=== PATIENT | female | born 1990 | race Caucasian/White ===

== ENCOUNTER 2020-03-31 16:47 | Outpatient (CLI) | payer OTHER, SELFPAY ==
--- NOTE | ~2020-03-31 | XR_ITS ---
EXAMINATION: XR sacrum coccyx min 2V INDICATION: Urinary retention TECHNIQUE: Three views of the sacrum and coccyx are obtained. COMPARISON: 08/07/2017 FINDINGS: There is a neurostimulator device implanted in the posterior subcutaneous tissues of the ri ght lower back with its lead entering the left pelvis, grossly unchanged. Bone alignment is normal. T here is no fracture. A phlebolith is noted in the left pelvis. There is a moderate volume of colonic stool. IMPRESSION: 1. No radiographic correlate for the patient's symptoms. Reviewed, dictated and finalized at location A.
== END 2020-03-31 16:48 | disposition home or self-care (01) ==
PROVIDERS: PCP Family Medicine
DX: R33.9 Retention of urine, unspecified (principal)
CPT/HCPCS: 72220

== ENCOUNTER 2020-11-03 13:33 | Outpatient (CLI) | payer OTHER, SELFPAY ==
--- NOTE | ~2020-11-03 | US_ITS ---
US breast RT limited DATE: 11/03/2020 13:55 INDICATION: Right breast lump for 2 months TECHNIQUE: High-resolution ultrasound imaging targeted at area of clinical complaint of right breast lump at 10:00 7 cm from nipple COMPARISON: None FINDINGS: No suspicious mass or shadowing is evident. There is no simple or complicated cyst identifi ed. IMPRESSION: BI-RADS Category 1: Negative Reviewed, dictated and finalized at Location A. Reviewed, dictated and finalized at location A. 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
== END 2020-11-03 13:34 | disposition home or self-care (01) ==
LOC: ANHIMG 13:34
PROVIDERS: PCP Family Medicine; Visit Provider Obstetrics & Gynecology
DX: N60.01 Solitary cyst of right breast (principal)
CPT/HCPCS: 76642

== ENCOUNTER 2022-06-16 16:34 | Outpatient (CLI) | payer OTHER, SELFPAY ==
[2022-06-16 17:04] LABS: Rheumatoid Factor < 8.6 IU/ML (<12)
== END 2022-06-16 16:35 | disposition home or self-care (01) ==
LOC: ANHLAB 16:36
PROVIDERS: PCP Family Medicine; Visit Provider Physician Assistant
DX: M25.50 Pain in unspecified joint (principal); R21 Rash and other nonspecific skin eruption
CPT/HCPCS: 36415; 86430

== ENCOUNTER 2023-02-13 12:01 | Outpatient (CLI) | payer OTHER, SELFPAY ==
--- NOTE | ~2023-02-13 | XR_ITS ---
EXAMINATION: XR sacrum coccyx min 2V INDICATION: Low back pain after fall, assess stimulator position TECHNIQUE: Four views of the sacrum and coccyx are obtained. COMPARISON: 03/31/2020 FINDINGS: Bone alignment is normal. There is no fracture. A neurostimulator device is implanted in th e posterior subcutaneous tissues of the right lower back. The intact lead is now seen to enter the pe lvis through the right S3 neural foramen and into the right pelvis, previously S4 and ending in the l eft pelvis. A neurostimulator device orientation is rotated approximately 180 degrees relative to the comparison examination. There is mild lumbar spondylosis. A moderate volume of stool is present in t he rectum. IMPRESSION: 1. Neurostimulator device lead now entering the right pelvis through the S3, previously the left pelv is through S4. 2. Stimulator device orientation is approximately 180 degrees relative to the comparison examination consistent with interval exchange of the device or rotation within the device cavity. Reviewed, dictated and finalized at location B. IMPRESSION: 1. Neurostimulator device lead now entering the right pelvis through the S3, pr eviously the left pelvis through S4. 2. Stimulator device orientation is approximately 180 degrees relative to the c omparison examination consistent with interval exchange of the device or rotati on within the device cavity.
== END 2023-02-13 12:02 | disposition home or self-care (01) ==
PROVIDERS: PCP Family Medicine; Visit Provider Nurse Practitioner Family
DX: R33.8 Other retention of urine (principal); Z96.82 Presence of neurostimulator
CPT/HCPCS: 72220

== ENCOUNTER 2023-06-20 16:52 | Outpatient (CLI) | payer OTHER, SELFPAY ==
--- NOTE | ~2023-06-20 | XR_ITS ---
AP view of the pelvis and AP and lateral views of the bilateral hips Clinical history: Pain COMPARISON: 02/13/2023 Findings: No acute fracture or dislocation is seen. Stable bone island in the right femoral neck. Oss eous alignment is anatomic. Bilateral hip and SI joint spaces are preserved. Neurostimulator device p resent. Soft tissues are unremarkable. Impression: No significant osseous or articular abnormality evident. Neurostimulator device. Reviewed, dictated and finalized at location . Impression: No significant osseous or articular abnormality evident. Neurostimulator device.
== END 2023-06-20 16:53 | disposition home or self-care (01) ==
PROVIDERS: PCP Family Medicine; Visit Provider Physician Assistant
DX: M25.551 Pain in right hip (principal); M25.552 Pain in left hip; Z96.82 Presence of neurostimulator
CPT/HCPCS: 73521

== ENCOUNTER 2023-08-28 08:52 | Outpatient (CLI) | payer OTHER, SELFPAY ==
--- NOTE | ~2023-08-28 | XR_ITS ---
XR lumbar spine min 4V DATE: 08/28/2023 09:18 INDICATION: Right hip pain TECHNIQUE: AP, lateral, coned lateral lumbosacral views and bilateral oblique views COMPARISON: January 04, 2018 lumbar spine FINDINGS: Again noted is thoracolumbar levoscoliosis. No fracture or bone destruction, spondylolysis or spondylolisthesis is detected. Lumbosacral interspa trish are well preserved. Battery pack overlies the right lower back with right sacral neurotransmitter lead. IMPRESSION: Levoscoliosis Reviewed, dictated and finalized at location B. IMPRESSION: Levoscoliosis
== END 2023-08-28 08:53 | disposition home or self-care (01) ==
PROVIDERS: PCP Family Medicine; Visit Provider Physician Assistant
DX: M25.551 Pain in right hip (principal); M25.552 Pain in left hip; M54.50 Low back pain, unspecified; M79.604 Pain in right leg; M79.605 Pain in left leg
CPT/HCPCS: 72110

== ENCOUNTER 2024-12-12 16:00 | Outpatient (CLI) | payer OTHER, SELFPAY ==
[2024-12-12 17:04] LABS: Influenza A QL RT-PCR Negative (Negative); Influenza B QL RT-PCR Negative (Negative); RSV RNA, RT-PCR Negative (Negative); SARS-CoV-2 RNA PCR Positive (Negative)
== END 2024-12-12 16:01 | disposition home or self-care (01) ==
LOC: ANHLAB 16:01
PROVIDERS: PCP Family Medicine; Visit Provider Family Medicine
DX: U07.1 COVID-19 (principal)
CPT/HCPCS: 87637

== ENCOUNTER 2025-02-13 09:44 | Outpatient (CLI) | payer OTHER, SELFPAY ==
--- OUTSIDE RECORDS SUMMARY | 2025-02-13 10:17 | XMS_ITS | Clinical Summary ---
Author Organization [facility] Address [address] [place] [address] Care Team Providers Care Certified Ophthalmic Assistant Name Role Phone Unavailable Primary Care Provider Unavailabl e Source Comments [facility],non-owned Affiliates and Associated Physician Practices is amultiple site organization consisting of ambulatory clinics and hospital sitesin [place], [place], [place] and [place]. This disclosure is being madepursuant to the Care Everywhere program and may not contain all information available regarding this patient. Last updated 18.[facility] [employer] Active Problems Problem Noted Date Diagnosed Date Other specified disorders of muscle 11/25/2014 Abdominal distension (gaseous) 11/24/2014 Gastroparesis 11/24/2014 Resolved Problems Problem Noted Date Diagnosed Date Resolved Date Constipation 11/24/2014 03/12/2018 Family History Medical History Relation Name Comments None Known Brother Status: Alive Depression Father Status: Alive Cancer Maternal Grandmother Colon a nd breast Hypertension Maternal Grandmother Depression Mother Status: Alive Cancer - Colon Paternal Grandmother Diabetes Paternal Grandmother Relation Name Status Comments Brother Father Maternal Grandmother Mother Paternal Grandmother Social History Tobacco Use Types Packs/Day Years Used Date Smoking Tobacco: Never Smokeless Tobacco: Never Alcohol Use Standard Drinks/Week Comments Yes 0 (1 standard drink = 0.6 oz pur e alcohol) Sex and Gender Information Value Date Recorded Sex Assigned at Not on file Gender Identity Not on file Sexual Orientation Not on file Last Filed Vital Signs Vital Sign Reading Time Taken Comments Blood Pressure 140/88 11/24/2014 1:56 PM PRESSER HAND Pulse 83 11/24/2014 1:56 PM PRESSER HAND Temperature 36.9 C (98.5 F) 11/24/2014 1:56 PM PRESSER HAND Respiratory Rate 18 11/24/2014 1:56 PM PRESSER HAND Oxygen Saturation - - Inhaled Oxygen Concentration - - Weight 66.9 kg (147 lb 8 oz) 11/24/2014 1:56 PM PRESSER HAND Height 170.2 cm (5' 7 ) 11/24/2014 1:56 PM PRESSER HAND Body Mass Index 23.1 11/24/2014 1:56 PM PRESSER HAND Plan of Treatment Health Maintenance Due Date Last Done Comments PAP SMEAR 1989 HIV SCREENING 2004 HEPATITIS C SCREENING 12/21/2007 DTAP/TDAP/TD VACCINES (1 - Tdap) 2008 HEPATITIS B VACCINE (1 of 3 - 19+ 3-dose series) 2008 COVID-19 VACCINE ( - 2023-2 5 season) 2024 INFLUENZA VACCINE (#1) 2024 DEPRESSION SCREENING 11/13/2024 ZOSTER VACCINE (1 of 2) 2039 HIB VACCINE Aged Out No longer eligi ble based on patient's age to complete this topic HPV VACCINE Aged Out No longer eligi ble based on patient's age to complete this topic MENINGOCOCCAL (Group B) VACC INE SHARED DECISION-MAKING Aged Out No longer eligibl e based on patient's age to complete this topic MENINGOCOCCAL GROUPS A/C/Y/W VACCINE Aged Out No longer eligible b ased on patient's age to complete this topic PNEUMOCOCCAL VACCINE Aged Out No long er eligible based on patient's age to complete this topic
--- OUTSIDE RECORDS SUMMARY | 2025-02-13 10:18 | XMS_ITS | Clinical Summary ---
Author Organization [facility] Address [address] [place] [address] Care Team Providers Care Steam Power Plant Operator Name Role Phone Gurpreet Dior MD Primary Care Provider [phone] Medications No known medications Social History Tobacco Use Types Packs/Day Years Used Date Smoking Tobacco: Never Smokeless Tobacco: Never Alcohol Use Standard Drinks/Week Comments Never 0 (1 standard drink = 0.6 oz pur e alcohol) Comments Unknown Sex and Gender Information Value Date Recorded Sex Assigned at Not on file Legal Sex Female 8:29 PM CDT Gender Identity Not on file Sexual Orientation Not on file Last Filed Vital Signs Vital Sign Reading Time Taken Comments Blood Pressure 115/82 06/12/2022 6:30 AM CDT Pulse 114 06/12/2022 5:37 AM CDT Temperature 37.2 C (98.9 F) 06/12/2022 5:37 AM CDT Respiratory Rate 18 06/12/2022 5:37 AM CDT Oxygen Saturation 100% 06/12/2022 6:45 AM CDT Inhaled Oxygen Concentration - - Weight 62.6 kg (138 lb) 06/12/2022 5:37 AM CDT Height 170.2 cm (5' 7 ) 06/12/2022 5:37 AM CDT Body Mass Index 21.61 06/12/2022 5:37 AM CDT Plan of Treatment Health Maintenance Due Date Last Done Comments Cervical Cancer Screening Pa p Smear (Age 30 to 64) Every 3 Years 1989 Annual Physical 1992 Hepatitis C 2007 Hepatitis B Vaccines (1 of 3 - 19+ 3-dose series) 2008 Cervical Cancer Screening Pa p with HPV Testing (Age 30 to 64) Every 5 Years 2019 Cervical Cancer Screening wi th HPV 2019 COVID-19 Vaccine (2023-2 5 season) 2024 10/04/2021, 02/16/2021, 01/21/2021 Influenza Adult (#1) 2024 08/26/2018, 11/16/2017, 08/18/2015 DTaP, Tdap and Td Vaccines ( 2 - Td or Tdap) 04/10/2029 04/10/2019 HPV Vaccines Aged Out No longer eligi ble based on patient's age to complete this topic Meningococcal B Vaccine Aged Out No l onger eligible based on patient's age to complete this topic Meningococcal Vaccine Aged Out No luciana chula eligible based on patient's age to complete this topic Pneumococcal Vaccine: Pediatrics (0 to 5 Years) and At-Risk Patients (6 to 64 Years) Aged Out No longer eligible b ased on patient's age to complete this topic RSV Immunizations Under 20 Months Aged Out No longer eligible b ased on patient's age to complete this topic [facility] [facility] Care [facility] Steam Power Plant Operator Relationship Specialty Start Date End Date Gurpreet Dior MD [address] [place] [address] PCP - General FAMILY PRACTICE 09/19/24
--- OUTSIDE RECORDS SUMMARY | 2025-02-13 10:18 | XMS_ITS | Encounter Summary ---
Author Organization [facility] Address [address] [place] [address] Phone Care Team Providers Care Generator Repairer Name Role Phone Gurpreet Dior MD Primary Care Provider Encounter Details Date Type Department Care Team (Late st Contact Info) Description 02/04/2025 Telephone [facility] Cardiology [address] [facility] 8th [place] [address] [place] [address] Mariya Kenny Social History Tobacco Use Types Packs/Day Years Used Date Smoking Tobacco: Never Smokeless Tobacco: Never Alcohol Use Standard Drinks/Week Comments No 0 (1 standard drink = 0.6 oz pur e alcohol) AUDIT-C Answer Date Recorded Q1: How often do you have a drink containing alc ohol? 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 NO DEVICE documented in this encounter Plan of Treatment Not on file documented as of this encounter Visit Diagnoses Not on filedocumented in this encounter Care Teams Generator Repairer Relationship Specialty Start Date End Date Gurpreet Dior MD [address] [facility] [address] [place] [address] PCP - General 01/10/17 documented as of this encounter
--- OUTSIDE RECORDS SUMMARY | 2025-02-13 10:18 | XMS_ITS | Clinical Summary ---
Author Organization [facility] Address [address] [address] Care Team Providers Care Casserole Preparer Name Role Phone Gurpreet Dior MD Primary Care Provider Allergies Active Allergy Reactions Criticality Noted Date Comments Other Itching,Rash Medium SURGICAL GLUE Medications rizatriptan CRITICAL CARE TECHNICIAN (MAXALT-CRITICAL CARE TECHNICIAN) 10 mg disintegrating tablet as needed 07/16/20 20 Active topiramate (TOPAMAX) 25 mg tablet daily 07/08/20 20 Active cyanocobalamin (Vitamin B-12) 1,000 mcg/mL injection INJECT 1 ML UNDER THE SKIN EVERY OTHER WEEK 11/19/19 22 Active BD SafetyGlide Insulin Syringe 1 mL 29 gauge x 1/2 syringe 09/09/20 21 Active dilTIAZem CD/XR/XT (CARDIZEM CD,DILACOR XR) 120 mg 24 hr capsule Take 1 capsule (120 mg total) by mouth daily 30 capsule 11 01/12/20 23 Active Additional Information Patient not taking.Reported on 12/31/2024 neomycin-polymyxin -HC (CORTISPORIN) 3.5-10,000-1 mg/mL-unit/mL-% otic suspension as needed 02/03/20 23 Active vitamin D3-vitamin K2 1,250-200 mcg capsule Take by mouth daily Active Loryna, 28, 3-0.02 mg per tablet TAKE 1 TABLET BY MOUTH DAILY IN CONTINUOUS MANNER SKIPPING THE PLACEBO PILLS 12/08/19 24 Active plecanatide 3 mg tablet Take 1 tablet (3 mg total) by mouth daily 90 tablet 3 12/29/19 24 Active Additional Information Patient not taking.Reported on 12/31/2024 dilTIAZem (CARDIZEM) 30 mg tablet Take 1 tablet (30 mg total) by mouth 3 (three) times a day as needed (Take one daily and prn for elevated HR) 180 tablet 03/08/20 24 Active pyRIDostigmine (MESTINON) 60 mg tablet Take 1 tablet (60 mg total) by mouth 3 (three) times a day 90 tablet 3 12/31/19 25 Active mineral oil liquidIndications: constipation 1 tablespoonful once or twice a day 180 mL 2 12/31/19 25 Active Active Problems Problem Noted Date Diagnosed Date S/P colectomy 02/14/2022 Overview (02/14/2022): Added automatically from request for surgery [id number] care following vaginal delivery 06/26 Overview (06/30/2019): # ID: Afebrile. No signs/symptoms of infection. # Heme: EBL 400 mL. No symptoms acute blood loss anemia. - B12 def: patient has been receiving supplementation per MFM. Will take last injection next week (needle will be provided prior to discharge, patient has none at home) and follow-up at routine PP visit for recheck level. Also encouraged patient to follow-up with PCP who had previously prescribed to ensure good coordination of care. # CV/Pulm: - cHTN: 3-4 elevated BPs outside of , on no meds. Admission CBC/CMP wnl. UPC 0.17. Two mild range BPs while in labor. Normotensive to mild range and asymptomatic. 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 Valles (EP for cards). Monitored on continuous telemetry. Alarm @11:09 on 06/27 with tachycardia, HR >170, concerning for SVT though unable to determine fully secondary to resolution after valsalva maneuver with no 12-lead EKG. EP following - started on diltiazem 120 daily with no further alarms overnight. CTM closely and continue telemetry. Patient asymptomatic. Will DC with diltiazem. EP recommends to keep appointment in February and f/u if symptoms develop. Number provided to patient in d/c information. - Chronic constipation: neurogenic bowel s/p total colectomy; multiple BM during admission, does not desire bowel reg on discharge (will go back to home regimen). - Neuropathic bladder: s/p Interstim placement, self cath prn. S/p void trial with multiple spontaneous voids - patient continues to spontaneously void without the need for straight catheterization. # Pain: Controlled with above regimen. # Post DVT prophylaxis: Patient has the following moderate risk factors: None. Her post prophylaxis plan is SCDs and early ambulation # MOC: POPs, encouraged to discuss other options at PP visit # MOF: # Disposition: Desires discharge home today, will ensure close follow-up in [facility] and with PCP, EP in February Elevated blood pressure affe cting in third trimester, antepartum 06/18/2019 Overview (06/18/2019): WAC 06/18/19 R/O SI Pre Eclampsia: x1 mild range in office -No e/o Pre Eclampsia, BP normotensive -No MCKAY or visual changes -No RUQ tenderness -PIH labs: normal with UPC 0.2 - Pre E precautions given. FWB: Reactive NST B12 deficiency 05/31/2019 Overview (06/18/2019): - continues to get B12 injections Anemia affecting in third trimester Overview (06/18/2019): - Normocytic anemia on 2nd tri labs with ferritin (6), Fe (43). - Previous diagnosis of B12 deficiency and wishes to recheck this level. - s/p IV iron Migraines 12/31/2018 Overview (06/18/2019): - Reports frequent migraines this that often cause n/v - gets relief from Excedrin Migraine, discussed given 250 mg of aspirin in Excedrin Migraine would avoid for remainder of . Patient reports still taking rarely (5x this ). - Encouraged to utilize tylenol and caffeine - given daily magnesium and compazine as needed, not helping - Given rx for reglan 5 mg on 01/14 Assessment & Plan (02/11/2019 11:47 AM CDT): Reports occasional headaches but overall doing well on current regimen. with history of recent miscarriage 09/2019 Inappropriate sinus tachycardia 07/25/2018 Overview (06/18/2019): --EP [place] is Dr. Kervin Valles --presented in 12/2016 with Palpitations and SOB; work-up revealed a right-sided aortic arch and anomalous left subclavian artery but otherwise normal echo --working Dx is inappropriate sinus tachycardia, possibly related to her unnamed autonomic dysfunction --was on diltiazem, but switch to metoprolol for (25mg) last , stopped 2/2 symptomatic hypotension - Normal echo --had holter 01/21/19 which showed overall good heart rate control & pt reports asymptomatic. - Patient reported more palpitations on 04/29 currently still on holter, plan to repaet 30 day event monitor per Dr. Valles. Discussed that either diltiazem or metoprolol is safe to restart if needed. --Please notify Dr. Valles's team when patient admitted. - tele in labor Assessment & Plan (04/23/2019 3:48 PM CDT): No cardiac issues today. Feels well. Assessment & Plan (02/11/2019 11:47 AM CDT): Denies issues Assessment & Plan (12/24/2018 2:14 PM MATERIAL STRESS TESTER): Denies symptoms, plans to call Dr. 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 Overview (06/18/2019): - Maternal right sided aortic arch with abarent left subclavian artery - Specialized anatomy and echo wnl Hypertension 01/03/2017 Overview (11/26/2018): -No meds prior to pregnnacy -counseled on maternal and risks in Plan: -Ordered 24 hr UP and CMP 11/26 -serial growths Tachycardia, unspecified 01/02/2017 Likely chronic hypertension affecting 09/15/2015 Overview (06/11/2019): -No meds outside of pregnacy -Patient denies HTN outside of , however, chart review in [employer] reveals 3-4 elevated BPs outside of -Counseled on recurrence risks in Plan: - continue baby ASA- stop at GA36 wks - 24 hr UP 94, CMP wnl - serial growth assessment- AGA at this time - delivery at 39 weeks if not before-IOL scheduled Assessment & Plan (06/18/2019 4:47 PM CDT): BP elevated above baseline today. Denies symptoms of preE but states she does not feel well the last two days. Sent to [facility] for r/o preE Assessment & Plan (04/23/2019 3:47 PM CDT): Normotensive today. PEC precautions reviewed. Supervision of high risk , antepartum 1 Overview (06/17/2019): [] Co-management vs. [x] Full [facility] Care Referring Provider: self [x] Dating Criteria: 6 wk u/s [x] Labs: Rh O+, Ab neg, Rubella Imm, HIV neg, HepBSAg neg, RPR NR, GC/CT neg/neg [x] Genetic Screening: [x] 1T screen low risk, [] 2T screen [x] CBC: 12.41/36.3 plt 174 [x] UCx: 12/31 Enterococcal UTI, no abx until 01/14, repeat culture negative 04/12 [x] Pap: plan for pap 2nd Tri Labs: [x] Anatomy ultrasound: complete and wnl [x] CBC and 1hr gtt at 24-28wks: 9.4/160 tmw=403 [x] Flu Shot (Sep-Dec) [x] Tdap (27-36wks)given 04/10 3rd Tri Labs: [x] CBC (8.9/28)/HIV neg /RPR neg/T&S (O+) [x] GBS-negative Counselling [x] MOD: Anticipate IOL scheduled for 06/26 @ 0600 [x] Place of delivery: [facility] [x] MOC: Patient does not desire BTL. May have a in 3 years. Reviewed LARC methods today. Considering Nexplanon [x] Method of feeding: wants to try breast again [] Hydro Station Supervisor: [] Car seat Discussed [] PP Depression Discussed Patient desires Martinez Escobar to be her L&D Nurse, if possible Neurogenic bowel 03/26/2015 Neuropathic bladder 03/26/2015 Overview (06/18/2019): --Neuropathic bladder prone to retention, managed with interstim outside of --Urologist Dr. Pieter Santos, s/p appointment with him on 12/18/18 --She has already been counseled regarding her use of InterStim and that this will have to be turned off when she becomes and turned it off herself when she became --Since it has been off, she has been able to void spontaneously without difficulty. Since she does not sense when her bladder is full, I recommended that she increase the frequency of regular voiding --Previously recommended that she self cath to check residual at least daily, after appointment with Dr. Santos the plan is not to initiate self caths at this time as her residual in his office was only 200cc. Reinforced importance of timed voids --last she self-catheterized and that would be the plan as needed this time --UTI 12/31, patient did not start medication until 01/14 --RONALD positive 02/11, treated with macrobid. Repeat RONALD 04/10 WNL --05/22- stopped her daily suppression, and denies symptoms. Assessment & Plan (06/18/2019 12:38 PM CDT): Denies issues Assessment & Plan (02/11/2019 11:46 AM CDT): Patient has not been self cathing Chronic constipation 07/17/2013 Overview (11/26/2018): Neurogenic bowel, status post total colectomy w/ reanastomosis --We reviewed her history and records at length. There is no over arching diagnosis that she has come to after an extensive workup after several years. Because she did not present with any of these symptoms in childhood and was not symptomatic until her late teens, it is not felt to be a congenital disease. --She had regular bowel studies at the [facility] which most recently reflected poor motility of her small bowel as well which was consistent with her ongoing symptoms of constipation and bloating, though she has never had any problems with malnutrition. --Dr. Vikram Moore follows her locally -- in her last she required enemas, which originally she had to be admitted with but then was able to do them at home; she has always been refractory to constipation meds --currently, and most recently she has had soft regular BM and can manage with hydration and diet; she will plan to continue with this plan and revisit with Dr. Moore is she becomes symptomatic Assessment & Plan (04/23/2019 3:48 PM CDT): No issues today. Assessment & Plan (02/11/2019 11:47 AM CDT): Denies issues Assessment & Plan (12/24/2018 2:13 PM MATERIAL STRESS TESTER): Denies issues today Abnormal large bowel motility 09/28/2012 Resolved Problems Problem Noted Date Diagnosed Date Resolved Date Vaginal bleeding before 22 weeks gestation 12/31/2018 02/11/2019 Overview (12/31/2018): - Reports 1 episode of bleeding 12/31 noted on toilet paper after urinating - Denies UTI symptoms but reports she often has bleeding with UTIs, dip negative 12/31, urine culture sent - Viability US 12/31 wnl, cervical length noted to be 5cm on verbal report from geographic information system analyst Kalpana ONEIL: closed/long/posterior - [facility] precautions reviewed Missed 08/16/2018 11/23/2018 Overview (08/16/2018): Added automatically from request for surgery [id number] Dysuria during , antepartum 07/25/2018 11/22/2018 Dizziness 02/14/2017 11/22/2018 Sensation of chest tightness 01/03/2017 11/22/2018 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 019 Nausea with vomiting 06/04/2015 019 Disorder of muscle, ligament, and fascia 08/06/2013 11/22/2018 Encounters Date Type Department Care Team Description 02/04/2025 Telephone [facility] Cardiology [address] [place] [address] [place] [address] Mariya Kenny 12/31/2024 11:15 AM MATERIAL STRESS TESTER Office Visit [facility] Gastroenterology [address] [place] [address] [place] [address] Tomas Diaz MD Chronic idiopathic constipation (Primary Dx); Bloating; Anal pain; Abdominal cramping from Last 3 Months Immunizations Immunization Administration Dates Next Due Influenza, Trivalent, Preservative Free, Intramu scular 08/18/2015 Tdap 04/10/2019 Surgical History Surgery Date Site/Laterality Comments COLPOSCOPY 11/13/2010 - 11/12/2011 OTHER SURGICAL HISTORY 2013 Interstim. 2016 Interstim replaced. CYST REMOVAL 11/13/2015 - 11/12/2016 Left wrist DILATION AND CURETTAGE OF UTERUS 11/13/2017 - 11/12/2018 miscarriage COLECTOMY 11/13/2009 - 11/12/2010 COMBINED HYSTEROSCOPY DIAGNOSTIC / D&C 11/13/2015 - 11/12/2016 Medical History Medical History Date Comments Tachycardia Chronic constipation Neurogenic bladder Dysuria HPV (human papilloma virus) infection 2010 Miscarriage 2018 Family History Medical History Relation Name Comments Alcohol abuse Father Colon cancer Maternal Grandmother Stroke Maternal Great-Grandmother F amily history of cerebrovascular accident - (Added by TW Conv) No Known Problems Mother Diabetes Paternal Grandmother Relation Name Status Comments Father Maternal Grandmother Maternal Great-Grandmother Mother Paternal Grandmother Social History Tobacco Use Types Packs/Day Years Used Date Smoking Tobacco: Never Smokeless Tobacco: Never Tobacco Cessation:Counseling Given: Not Answered Alcohol Use Standard Drinks/Week Comments No 0 [...] on file Legal Sex Female 7:40 PM MATERIAL STRESS TESTER Gender Identity Not on file Sexual Orientation Not on file Obstetrics History Para Term AB IAB SAB Ectopic Multiple Livin g Live Births 3 2 2 1 1 0 2 2 Date Outcome GA Total Labor Labor/2nd/3rd Weight Sex Type Anes PTL Ilzbet A1 A5 Name Clin 2015 Term 39w 0d 3.402 kg (7 lb 8 oz) F Vag-S pont Epidur al N Livin g 2017 SAB 9w0 d D&C 2018 Term 39w 1d 19h 01m 17h 10m/1h 41m/0h 10m 4.23 kg (9 lb 5.2 oz) F Vag-S pont Epidur al N Livin g 7 9 WILLI AMS,G IRLTR LULU Wong rg, Barbara Perdomo MD Complications:Shoulder Dysto pablo Delivery Location:[facility] Main C ampus ([facility] 58LD) Last Filed Vital Signs Vital Sign Reading Time Taken Comments Blood Pressure 117/80 12/31/2024 11:14 AM MATERIAL STRESS TESTER Pulse 85 12/31/2024 11:14 AM MATERIAL STRESS TESTER Temperature 36.8 C (98.2 F) 03/10/2022 7:29 AM CDT Respiratory Rate 16 12/31/2024 11:1 4 AM MATERIAL STRESS TESTER Oxygen Saturation 98% 12/31/2024 11: 14 AM MATERIAL STRESS TESTER Inhaled Oxygen Concentration - - Weight 67.5 kg (148 lb 12.8 oz) 025 11:14 AM MATERIAL STRESS TESTER Height 170.2 cm (5' 7 ) 12/31/2024 11:1 4 AM MATERIAL STRESS TESTER Body Mass Index 23.31 12/31/2024 11:14 AM MATERIAL STRESS TESTER Plan of Treatment Health Maintenance Due Date Last Done Comments Depression Screening 1989 Hepatitis C Screening 1989 Varicella Vaccines (1 of 2 - 13+ 2-dose series) 2002 Hepatitis B Screening 2007 Regular Well Visit/Exam 18-64 2007 Cervical Cancer Screening 08/08/2020 08/08/2019 Influenza Vaccine (Season Ended) 2025 08/26/2018, 11/16/2017, 08/18/2015 DTaP/Tdap/Td Vaccine (2 - Td or Tdap) 04/10/2029 04/10/2019 HPV Vaccines Aged Out No longer eligi ble based on patient's age to complete this topic Pneumococcal vaccine <65 Aged Out No longer eligible based on patient's age to complete this topic Medical Devices Implanted Type Area Tv Host Device Identifier Shelf Expiration Date Model / Serial / Lot Interstem N/A: Bladder Procedures Procedure Name Priority Date/Time Associated Diagnosis Comments THINPREP IMAGING PAP REFLEX HPV MRNA E6/E7 Routine 08/08/2019 12:00 AM CDT from Last 3 Months or Most Recently Relevant to Health Maintenance Results * ThinPrep Imaging Pap Reflex HPV mRNA E6/E7 (08/08/2019 12:00 AM CDT) CLINICAL INFORMATION: Routine exam 6WKS W/HX OF HPV+ 29Y/O FE [facility] [place] LMP INFORMATION NOT PROVIDED [facility] Previous Pap INFORMATION NOT PROVIDED [facility] Prev. Bx INFORMATION NOT PROVIDED [facility] SOURCE: Cervix, Endocervix [facility] - Pap, specimen adequacy SATISFACTORY FOR EVALUATION [facility] HPV interp Negative for intraepithelial lesion or malignancy. Atrophic pattern; predominantly parabasal cells [facility] COMMENTS This Pap test has been evaluated with computer assisted technology. [facility] - Access Specialist [place], CT(ASCP) CT screening location: [place] [address] [facility] - Review dish up person [place], CT(ASCP) CT Screening location: [facility] [address] [facility] - Comment [facility] - Comment: EXPLANATORY NOTE: The Pap is a screening test for cervical cancer. It is not a diagnostic test and is subject to false negative and false positive results. It is most reliable when a satisfactory sample, regularly obtained, is submitted with relevant clinical findings and history, and when the Pap result is evaluated along with historic and current clinical information. 08/08/2019 08/09/2019 4:4 6 AM CDT Narrative [facility] - 08/13/2019 7:55 AM CDT FASTING: UNKNOWN Resulting Agency Comment Performing Organization Information: Site ID: [place] Name: [facility] Address: [address] [place] [address] Director: Rhiannon Rangel us Elizabeth Hernández MD LAB PATHOLOGY ORDERAB LES Final Result [facility] [address] [place] from Last 3 Months or Most Recently Relevant to Health Maintenance Insurance COMMERCIAL GENERIC CIGNA IBEW [facility] CIGNA CIGNA OPEN ACCESS CIGNA IBEW [facility] CIGNA IBEW CIGNA IBEW CIGNA IBEW Advance Directives For more information, please contact: [phone] * Full Code (Latest Code Status on File) Date Activated Date Inactivated Comments 03/10/2022 6:22 AM 03/10/2022 12:31 PM * Full Code Date Activated Date Inactivated Comments 06/27/2019 11:55 PM 06/30/2019 3:44 PM * Full Code Date Activated Date Inactivated Comments 06/27/2019 7:47 AM 06/27/2019 11:55 PM * Full Code Date Activated Date Inactivated Comments 06/26/2019 7:00 AM 06/27/2019 7:47 AM Full CPR in case of cardiopulmonary arrest Care Teams Casserole Preparer Relationship Specialty Start Date End Date Gurpreet Dior MD [address] [facility] [address] [place] [address] PCP - General 01/10/17
--- OUTSIDE RECORDS SUMMARY | 2025-02-13 10:18 | XMS_ITS | Referral Summary ---
Author Organization [facility] Address [address] [place] [address] Care Team Providers Care Soaker Soda Worker Name Role Phone Gurpreet Dior MD Primary Care Provider Encounters Date Type Department Care Team Description 02/04/2025 Telephone [facility] Cardiology [address] [facility] 8th [place] [address] [place] [phone] Mariya Kenny 12/31/2024 11:15 AM CUP SETTER LOCKSTITCH Office Visit [facility] Gastroenterology [address] [facility] 12th [place] [address] [place] [address] Tomas Diaz MD Chronic idiopathic constipation (Primary Dx); Bloating; Anal pain; Abdominal cramping from Last 3 Months Allergies Active Allergy Reactions Criticality Noted Date Comments Other Itching,Rash Medium SURGICAL GLUE Medications rizatriptan UTILITY DRIVER (MAXALT-UTILITY DRIVER) 10 mg disintegrating tablet as needed 07/16/20 [...] 3.5-10,000-1 mg/mL-unit/mL-% otic suspension as needed 02/03/20 Active vitamin D3-vitamin K2 1,250-200 mcg capsule [...] (02/14/2022): Added automatically from request for surgery [id number] care following vaginal delivery 06/26 Overview (06/30/2019): # ID: Afebrile. No signs/symptoms of infection. # Heme: EBL 400 mL. No symptoms acute blood loss anemia. - B12 def: patient has been receiving supplementation per M. Will take last injection next week (needle [...] home today, will ensure close follow-up in [facility] and with PCP, EP in February [...] Inappropriate sinus tachycardia 07/25/2018 Overview (06/18/2019): --EP fire supervisor is Dr. Kervin Valles --presented in 12/2016 [...] issues Assessment & Plan (12/24/2018 2:14 PM CUP SETTER LOCKSTITCH): Denies symptoms, plans to call Dr. Valles [...] well the last two days. Sent to [facility] for r/o preE Assessment & Plan (04/23/2019 3:47 PM CDT): Normotensive today. PEC precautions reviewed. Supervision of high risk , antepartum 1 Overview (06/17/2019): [] Co-management vs. [x] Full [facility] Care Referring Provider: self [x] Dating [...] CBC and 1hr gtt at 24-28wks: 9.4/160 [id number] [x] Flu Shot (Sep-Dec) [x] Tdap (27-36wks)given 04/10 3rd Tri Labs: [x] CBC (8.08/10)/HIV neg /RPR neg/T&S (O+) [x] GBS-negative Counselling [x] MOD: Anticipate IOL scheduled for 06/26 @ 0600 [x] Place of delivery: [facility] [x] MOC: Patient does not desire BTL. May have a in 3 years. Reviewed LARC methods today. 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 Resolved Problems Problem Noted Date Diagnosed Date Resolved Date Vaginal bleeding before 22 weeks gestation 12/31/2018 02/11/2019 Overview (12/31/2018): - Reports 1 episode of bleeding 12/31 noted on toilet paper after urinating - Denies UTI symptoms but reports she often has bleeding with UTIs, dip negative 2/18, urine culture sent - Viability US 12/31 wnl, cervical length noted to be 5cm on verbal report from analyst food and beverage Kalpana ONEIL: closed/long/posterior - WAC precautions reviewed Missed 08/16/2018 11/23/2018 Overview (08/16/2018): Added automatically from request for surgery [id number] Dysuria during , antepartum 07/25/2018 11/22/2018 Dizziness 02/14/2017 11/22/2018 Sensation of chest tightness 01/03/2017 11/22/2018 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 019 Nausea with vomiting 06/04/2015 019 Disorder of muscle, ligament, and fascia 08/06/2013 11/22/2018 Immunizations Immunization Administration Dates Next Due Influenza, Trivalent, Preservative Free, Intramu scular 08/18/2015 Tdap 04/10/2019 Social History Tobacco Use Types Packs/Day Years [...] on file Legal Sex Female 7:40 PM CUP SETTER LOCKSTITCH Gender Identity Not on file Sexual Orientation Not on file Last Filed Vital Signs Vital Sign Reading Time Taken Comments Blood Pressure 117/80 12/31/2024 11:14 AM CUP SETTER LOCKSTITCH Pulse 85 12/31/2024 11:14 AM CUP SETTER LOCKSTITCH Temperature 36.8 C (98.2 F) 03/10/2022 7:29 AM CDT Respiratory Rate 16 12/31/2024 11:1 4 AM CUP SETTER LOCKSTITCH Oxygen Saturation 98% 12/31/2024 11: 14 AM CUP SETTER LOCKSTITCH Inhaled Oxygen Concentration - - Weight 67.5 kg (148 lb 12.8 oz) 025 11:14 AM CUP SETTER LOCKSTITCH Height 170.2 cm (5' 7 ) 12/31/2024 11:1 4 AM CUP SETTER LOCKSTITCH Body Mass Index 23.31 12/31/2024 11:14 AM CUP SETTER LOCKSTITCH Plan of Treatment Not on file Medical Devices Implanted Type Area Staff Accountant Device Identifier Shelf Expiration Date Model / [...] LMP INFORMATION NOT PROVIDED [facility] - Previous Pap INFORMATION NOT PROVIDED [facility] - SL Prev. Bx INFORMATION NOT PROVIDED [facility] - SOURCE: Cervix, Endocervix [facility] - Pap, specimen adequacy SATISFACTORY FOR EVALUATION [facility] - HPV interp Negative for intraepithelial lesion or malignancy. Atrophic pattern; predominantly parabasal cells [facility] - SL COMMENTS This Pap test has been evaluated with computer assisted technology. [facility] - Thermocouple Tester BEF, CT(ASCP) CT screening location: [place] [address] [address] [place] [address] [facility] - Review cloth shrinking tester GALVEZ, CT(ASCP) CT Screening location: [facility] Administration [place] [address] [facility] - Comment [facility] - Comment: EXPLANATORY NOTE: The [...] Agency Comment Performing Organization Information: Site ID: Name: [facility] Address: [facility] Administration [place] [address] Director: Rhiannon Rangel Elizabeth Hernández MD LAB PATHOLOGY ORDERAB LES Final Result [facility] - [place], [place] from Last 3 Months or Most Recently Relevant to Health Maintenance Insurance COMMERCIAL GENERIC CIGNA IBEW [facility] CIGNA CIGNA OPEN ACCESS CIGNA IB [facility] CIGNA IBEW CIGNA IBEW CIGNA IBEW Advance Directives For more information, please contact: [phone] * Full Code (Latest Code Status on [...] in case of cardiopulmonary arrest Care Teams Soaker Soda Worker Relationship Specialty Start Date End Date Gurpreet Dior MD [address] [place] [phone] PCP - General 01/10/17
[2025-02-13 10:45] LABS: Alanine Aminotransferase 14 U/L (6-35); Aspartate Amino Transferase 23 U/L (14-36)
== END 2025-02-13 09:45 | disposition home or self-care (01) ==
LOC: ANHLAB 09:46
PROVIDERS: PCP Family Medicine; Visit Provider Podiatrist Foot & Ankle Surgery
DX: B35.1 Tinea unguium (principal)
CPT/HCPCS: 36415; 84450; 84460

== ENCOUNTER 2025-03-07 08:53 | Outpatient (CLI) | payer OTHER, SELFPAY ==
--- OUTSIDE RECORDS SUMMARY | 2025-03-07 09:06 | XMS_ITS | Clinical Summary ---
Author Organization [facility] Address [address] [place] [address] Care Team Providers Care Natural Remedy Consultant Name Role Phone Gurpreet Dior MD Primary Care Provider [phone] Medications No known medications Social History Tobacco [...] Screening wi th HPV 2019 COVID-19 Vaccine (4 - 2023-2 5 season) 2024 10/04/2021, 02/16/2021, 01/21/2021 DTaP, Tdap and Td Vaccines ( 2 [...] 5 Years) and At-Risk Patients (6 to 49 Years) Aged Out No longer eligible b ased on patient's age to complete this topic RSV Immunizations Under 20 Months Aged Out No longer eligible b ased on patient's age to complete this topic Insurance [facility] Care Teams Natural Remedy Consultant Relationship Specialty Start Date End Date Gurpreet Dior MD [address] [place] [address] PCP - General FAMILY PRACTICE 09/19/24
--- OUTSIDE RECORDS SUMMARY | 2025-03-07 09:06 | XMS_ITS | Encounter Summary ---
Author Organization [facility] Address [address] [place] [address] Phone Care Team Providers Care Violin Restorer Name Role Phone Gurpreet Dior MD Primary Care Provider Encounter Details Date Type Department Care Team (Late st Contact Info) Description 02/04/[address] [facility] Cardiology [address] [facility] Advanced [facility] 8th [place] [address] [place] [address] Mariya Kenny Social History Tobacco Use Types [...] on file Legal Sex Female 7:40 PM RIGGING LOFT REPAIRER Gender Identity Not on file Sexual Orientation Not on file documented as of this encounter Miscellaneous Notes * Telephone Encounter - Mariya Kenny - 02/04/2025 12:35 PM CDT [facility] CALLING TO R/S 02/13 ROV. NO DEVICE documented in this encounter Plan of Treatment Not on file documented as of this encounter Visit Diagnoses Not on filedocumented in this encounter Care Teams Violin Restorer Relationship Specialty Start Date End Date Gurpreet Dior MD [address] [facility] [address] [place] [address] PCP - General 01/10/17 documented as of this encounter
--- OUTSIDE RECORDS SUMMARY | 2025-03-07 09:06 | XMS_ITS | Referral Summary ---
Author Organization [facility] Address [address] [place] [address] Care Team Providers Care Traffic Worker Name Role Phone Gurpreet Dior MD Primary Care Provider Encounters Date Type Department Care Team Description 02/04/2025 Telephone [facility] Cardiology [address] [facility] 8th [place] [address] [place] [address] Mariya Kenny 12/31/2024 11:15 AM DIETITIAN Office Visit [facility] Gastroenterology [address] [facility] [address] 12th [place] [address] [place] [address] Tomas Diaz MD Chronic idiopathic constipation (Primary Dx); Bloating; Anal pain; Abdominal cramping from Last 3 Months Allergies Active Allergy Reactions Criticality Noted Date Comments Other Itching,Rash Medium SURGICAL GLUE Medications rizatriptan AUTO PAINTER HELPER (MAXALT-AUTO PAINTER HELPER) 10 mg disintegrating tablet as needed 07/16/20 [...] (02/14/2022): Added automatically from request for surgery [id number] care following vaginal delivery 06/26 Overview (06/30/2019): [...] home today, will ensure close follow-up in [facility] and with PCP, EP in February [...] Inappropriate sinus tachycardia 07/25/2018 Overview (06/18/2019): --EP golf course designer is Dr. Kervin Valles --presented in 12/2016 [...] issues Assessment & Plan (12/24/2018 2:14 PM DIETITIAN): Denies symptoms, plans to call Dr. Valles [...] well the last two days. Sent to [facility] for r/o preE Assessment & Plan (04/23/2019 3:47 PM CDT): Normotensive today. PEC precautions reviewed. Supervision of high risk , antepartum 1 Overview (06/17/2019): [] Co-management vs. [x] Full [facility] Care Referring Provider: self [x] Dating [...] CBC and 1hr gtt at 24-28wks: 9.4/160 ltq=[id number] [x] Flu Shot (Sep-Dec) [x] Tdap (27-36wks)given [...] feeding: wants to try breast again [] Broadcaster: [] Car seat Discussed [] PP Depression [...] --She had regular bowel studies at the [facility] which most recently reflected poor motility [...] issues Assessment & Plan (12/24/2018 2:13 PM DIETITIAN): Denies issues today Abnormal large bowel motility [...] to be 5cm on verbal report from database consultant Kalpana ONEIL: closed/long/posterior - WAC precautions reviewed Missed 08/16/2018 11/23/2018 Overview (08/16/2018): Added automatically from request for surgery [id number] Dysuria during , antepartum 07/25/2018 11/22/2018 Dizziness [...] on file Legal Sex Female 7:40 PM DIETITIAN Gender Identity Not on file Sexual Orientation Not on file Last Filed Vital Signs Vital Sign Reading Time Taken Comments Blood Pressure 117/80 12/31/2024 11:14 AM DIETITIAN Pulse 85 12/31/2024 11:14 AM DIETITIAN Temperature 36.8 C (98.2 F) 03/10/2022 7:29 AM CDT Respiratory Rate 16 12/31/2024 11:1 4 AM DIETITIAN Oxygen Saturation 98% 12/31/2024 11: 14 AM DIETITIAN Inhaled Oxygen Concentration - - Weight 67.5 kg (148 lb 12.8 oz) 025 11:14 AM DIETITIAN Height 170.2 cm (5' 7 ) 12/31/2024 11:1 4 AM DIETITIAN Body Mass Index 23.31 12/31/2024 11:14 AM DIETITIAN Plan of Treatment Not on file Medical Devices Implanted Type Area Patient Admitting Clerk Device Identifier Shelf Expiration Date Model / [...] has been evaluated with computer assisted technology. [facility] - Pharmacy Teacher BEF, CT(ASCP) CT screening location: [place] [address] [address] [place] [address] [facility] - Review dowel inserting machine operator GALVEZ, CT(ASCP) CT Screening location: [facility] Administration [place] [address] [facility] - Comment [facility] - Comment: EXPLANATORY NOTE: The [...] Comment Performing Organization Information: Site ID: Name: [email or web address] Address: [facility] Administration [place] [address] Director: Rhiannon Rangel Elizabeth Hernández MD LAB PATHOLOGY ORDERAB LES Final Result [facility] - [place], [place] from Last 3 Months or Most Recently Relevant to Health Maintenance Insurance COMMERCIAL GENERIC CIGNA IBEW [facility] CIGNA CIGNA OPEN ACCESS CIGNA IB [facility] CIGNA IBEW CIGNA IBEW CIGNA IBEW Advance Directives For more information, please contact: [phone] * Full Code (Latest Code Status on [...] in case of cardiopulmonary arrest Care Teams Traffic Worker Relationship Specialty Start Date End Date Gurpreet Dior MD [address] [place] [phone] PCP - General 01/10/17
--- OUTSIDE RECORDS SUMMARY | 2025-03-07 09:06 | XMS_ITS | Clinical Summary ---
Author Organization [facility] Address [address] [address] Care Team Providers Care Master Cook Name Role Phone Gurpreet Dior MD Primary Care Provider Allergies Active Allergy Reactions Criticality Noted Date Comments Other Itching,Rash Medium SURGICAL GLUE Medications rizatriptan ICING MACHINE OPERATOR (MAXALT-ICING MACHINE OPERATOR) 10 mg disintegrating tablet as needed 07/16/20 [...] (02/14/2022): Added automatically from request for surgery [id number] care following vaginal delivery 06/26 Overview (06/30/2019): [...] home today, will ensure close follow-up in [facility] and with PCP, EP in February [...] Inappropriate sinus tachycardia 07/25/2018 Overview (06/18/2019): --EP acid tank liner is Dr. Kervin Valles --presented in 12/2016 [...] issues Assessment & Plan (12/24/2018 2:14 PM MOBILE PRACTICE LEAD): Denies symptoms, plans to call Dr. Valles [...] well the last two days. Sent to [facility] for r/o preE Assessment & Plan (04/23/2019 3:47 PM CDT): Normotensive today. PEC precautions reviewed. Supervision of high risk , antepartum 1 Overview (06/17/2019): [] Co-management vs. [x] Full [facility] Care Referring Provider: self [x] Dating [...] CBC and 1hr gtt at 24-28wks: 9.4/160 vma=[id number] [x] Flu Shot (Sep-Dec) [x] Tdap (27-36wks)given [...] feeding: wants to try breast again [] Advertising Dispatch Clerk: [] Car seat Discussed [] PP Depression [...] --She had regular bowel studies at the [facility] which most recently reflected poor motility [...] issues Assessment & Plan (12/24/2018 2:13 PM MOBILE PRACTICE LEAD): Denies issues today Abnormal large bowel motility [...] to be 5cm on verbal report from end finder forming department Kalpana ONEIL: closed/long/posterior - [facility] precautions reviewed Missed 08/16/2018 11/23/2018 Overview (08/16/2018): Added automatically from request for surgery [id number] Dysuria during , antepartum 07/25/2018 11/22/2018 Dizziness 02/14/2017 11/22/2018 Sensation of chest tightness 01/03/2017 11/22/2018 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 8th [place] [address] [place] [address] Mariya Kenny 12/31/2024 11:15 AM MOBILE PRACTICE LEAD Office Visit [facility] Gastroenterology [address] [facility] 12th [place] [address] [place] [address] Tomas Diaz MD Chronic idiopathic constipation (Primary [...] on file Legal Sex Female 7:40 PM MOBILE PRACTICE LEAD Gender Identity Not on file Sexual Orientation Not on file Obstetrics History Para Term AB IAB SAB Ectopic Multiple Livin g Live Births 3 2 2 1 1 0 2 2 Date Outcome GA Total Labor Labor/2nd/3rd Weight Sex Type Anes PTL Lizbet A1 A5 Name Clin 2015 Term 39w [...] Barbara Perdomo MD Complications:Shoulder Dysto pablo Delivery Location:[facility] Main C ampus ([facility] 58LD) Last Filed Vital Signs Vital Sign Reading Time Taken Comments Blood Pressure 117/80 12/31/2024 11:14 AM MOBILE PRACTICE LEAD Pulse 85 12/31/2024 11:14 AM MOBILE PRACTICE LEAD Temperature 36.8 C (98.2 F) 03/10/2022 7:29 AM CDT Respiratory Rate 16 12/31/2024 11:1 4 AM MOBILE PRACTICE LEAD Oxygen Saturation 98% 12/31/2024 11: 14 AM MOBILE PRACTICE LEAD Inhaled Oxygen Concentration - - Weight 67.5 kg (148 lb 12.8 oz) 025 11:14 AM MOBILE PRACTICE LEAD Height 170.2 cm (5' 7 ) 12/31/2024 11:1 4 AM MOBILE PRACTICE LEAD Body Mass Index 23.31 12/31/2024 11:14 AM MOBILE PRACTICE LEAD Plan of Treatment Health Maintenance Due Date [...] this topic Medical Devices Implanted Type Area Trail Construction Worker Device Identifier Shelf Expiration Date Model / [...] with computer assisted technology. [facility] - Rope Machine Setter BE, CT(ASCP) CT screening location: [place] [address] [facility] - Review java technical architect CANEY, CT(ASCP) CT Screening location: [facility] [address] Valenz[address] [facility] - Comment [facility] - Comment: EXPLANATORY NOTE: The Pap [...] Organization Information: Site ID: SL Name: [facility] Address: [address] [place] [address] Director: Rhiannon Rangel us Elizabeth Hernández MD LAB PATHOLOGY ORDERAB LES Final Result [facility] - [place] from Last 3 Months or Most Recently Relevant to Health Maintenance Insurance COMMERCIAL GENERIC CIGNA IBEW [facility] CIGNA CIGNA OPEN ACCESS CIGNA IBEW [facility] CIGNA IBEW CIGNA IBEW CIGNA IBEW Advance Directives For more information, please contact: [phone] * Full Code (Latest Code Status on [...] in case of cardiopulmonary arrest Care Teams Master Cook Relationship Specialty Start Date End Date Gurpreet Dior MD [address] [facility] [address] [place] [address] PCP - General 01/10/17
--- OUTSIDE RECORDS SUMMARY | 2025-03-07 09:06 | XMS_ITS | Clinical Summary ---
Author Organization [facility] Address [address] [facility] [place] [address] Care Team Providers Care Photographer Helper Name Role Phone Unavailable Primary Care Provider Unavailabl e Source Comments [facility],non-owned Affiliates and Associated Physician Practices is amultiple site organization consisting of ambulatory clinics and hospital sitesin [place], [place], [place] and [place]. This disclosure is being madepursuant to the Care Everywhere program and may not contain all information available regarding this patient. Last updated 18.[facility] Active Problems Problem Noted Date Diagnosed Date [...] at Not on file Legal Sex Female 6:16 PM ENGINE RESEARCH ENGINEER Gender Identity Not on file Sexual Orientation Not on file Last Filed Vital Signs Vital Sign Reading Time Taken Comments Blood Pressure 140/88 11/24/2014 1:56 PM ENGINE RESEARCH ENGINEER Pulse 83 11/24/2014 1:56 PM ENGINE RESEARCH ENGINEER Temperature 36.9 C (98.5 F) 11/24/2014 1:56 PM ENGINE RESEARCH ENGINEER Respiratory Rate 18 11/24/2014 1:56 PM ENGINE RESEARCH ENGINEER Oxygen Saturation - - Inhaled Oxygen Concentration - - Weight 66.9 kg (147 lb 8 oz) 11/24/2014 1:56 PM ENGINE RESEARCH ENGINEER Height 170.2 cm (5' 7 ) 11/24/2014 1:56 PM ENGINE RESEARCH ENGINEER Body Mass Index 23.1 11/24/2014 1:56 PM ENGINE RESEARCH ENGINEER Plan of Treatment Health Maintenance Due Date Last Done Comments HIV SCREENING 2004 HEPATITIS C SCREENING 12/21/2007 DTAP/TDAP/TD VACCINES (1 - Tdap) 2008 HEPATITIS B VACCINE (1 of 3 - 19+ 3-dose series) 2008 COVID-19 VACCINE ( - 2023-2 5 season) 2024 DEPRESSION SCREENING 11/13/2024 INFLUENZA VACCINE (Season Ended) 2025 ZOSTER VACCINE (1 of 2) 2039 HIB [...]
[2025-03-07 09:10] LABS: Basophils Percent Auto 0.4 % (0.2-1.2); Eosinophils Absolute Auto 0.2 K/mm3 (0-0.3); Eosinophils Percent Auto 3.7 % (0-4.4); Hematocrit 39.3 % (37.0-47.0); Hemoglobin 12.9 g/dL (12.0-15.0); Immature Granulocyte Absolute 0.01 K/mm3 (0.00-0.031); Immature Granulocyte Percent A 0.2 % (0-0.5); Lymphocytes Absolute Auto 1.64 K/mm3 (0.9-3.2); Lymphocytes Percent Auto 31.6 % (18.3-44.2); Mean Corpuscular HGB Conc 32.8 g/dl (32-36); Mean Corpuscular Hemoglobin 29.7 pg (26-34); Mean Corpuscular Volume 90.6 fl (80-100); Mean Platelet Volume 10.2 fl (7.4-10.4); Monocytes Absolute Auto 0.4 K/mm3 (0.1-0.6); Monocytes Percent Auto 7.3 % (2.6-8.5); Neutrophils Percent Auto 56.8 % (45.5-73.1); Platelet Count Result 207 k/mm3 (150-375); Red Blood Count 4.34 M/mm3 (4.2-5.4); Red Cell Distribution Width 12.4 % (11.5-14.5); White Blood Count 5.2 K/mm3 (4.5-10.0)
[2025-03-07 09:22] LABS: Alanine Aminotransferase 13 U/L (6-35); Albumin Level 4.4 g/dL (3.5-5.1); Alkaline Phosphatase 42 U/L (38-126); Anion Gap 8 mmol/L (4-12); Aspartate Amino Transferase 20 U/L (14-36); Bilirubin,Total 0.4 mg/dL (0.2-1.3); Blood Urea Nitrogen 13 mg/dL (7-17); Calcium 9.1 mg/dL (8.4-10.2); Carbon Dioxide 26 mmol/L (22-30); Chloride 102 mmol/L (98-107); Estimated Glomerular Filt Rate > 60; Glucose 85 mg/dL (65-110); Potassium 4.3 mmol/L (3.4-5.0); Sodium 136 mmol/L (137-145)
== END 2025-03-07 08:54 | disposition home or self-care (01) ==
LOC: ANHLAB 08:54
PROVIDERS: PCP Family Medicine; Visit Provider Physician Assistant
DX: D64.9 Anemia, unspecified (principal); E53.8 Deficiency of other specified B group vitamins; R00.0 Tachycardia, unspecified; I95.1 Orthostatic hypotension
CPT/HCPCS: 36415; 80053; 82607; 82652; 85025

== ENCOUNTER 2025-05-14 11:16 | Outpatient (CLI) | payer OTHER, SELFPAY ==
--- OUTSIDE RECORDS SUMMARY | 2025-05-14 11:24 | XMS_ITS | Clinical Summary ---
Author Organization [facility] Address [address] [facility] [place] [address] Care Team Providers Care Gauge Machine Operator Name Role Phone Unavailable Primary Care Provider Unavailabl e Source Comments [facility],non-owned Affiliates and Associated Physician Practices is amultiple site organization consisting of ambulatory clinics and hospital sitesin [place], [place], [place] and [place]. This disclosure is being madepursuant to the Care Everywhere program and may not contain all information available regarding this patient. Last updated 18.[facility] Active Problems Problem Noted Date [...] on file Legal Sex Female 6:16 PM DISTILLERY MANAGER Gender Identity Not on file Sexual Orientation Not on file Last Filed Vital Signs Vital Sign Reading Time Taken Comments Blood Pressure 140/88 11/24/2014 1:56 PM DISTILLERY MANAGER Pulse 83 11/24/2014 1:56 PM DISTILLERY MANAGER Temperature 36.9 C (98.5 F) 11/24/2014 1:56 PM DISTILLERY MANAGER Respiratory Rate 18 11/24/2014 1:56 PM DISTILLERY MANAGER Oxygen Saturation - - Inhaled Oxygen Concentration - - Weight 66.9 kg (147 lb 8 oz) 11/24/2014 1:56 PM DISTILLERY MANAGER Height 170.2 cm (5' 7) 11/24/2014 1:56 PM DISTILLERY MANAGER Body Mass Index 23.1 11/24/2014 1:56 PM DISTILLERY MANAGER Plan of Treatment Health Maintenance Due Date [...]
--- OUTSIDE RECORDS SUMMARY | 2025-05-14 11:25 | XMS_ITS | Clinical Summary ---
Author Organization [facility] Address [address] [place] [address] Care Team Providers Care Still Operator Helper Name Role Phone Gurpreet Dior MD Primary Care Provider [phone] Medications No known medications Social History Tobacco [...] 5:37 AM CDT Height 170.2 cm (5' 7) 06/12/2022 5:37 AM CDT Body Mass Index [...] patient's age to complete this topic Insurance [facility] Care Teams Still Operator Helper Relationship Specialty Start Date End Date Gurpreet Dior MD [address] [place] [address] PCP - General FAMILY PRACTICE 09/19/24
[2025-05-14 12:18] LABS: Alanine Aminotransferase 13 U/L (6-35); Aspartate Amino Transferase 23 U/L (14-36)
== END 2025-05-14 11:17 | disposition home or self-care (01) ==
LOC: ANHLAB 11:18
PROVIDERS: PCP Family Medicine; Visit Provider Podiatrist Foot & Ankle Surgery
DX: B35.1 Tinea unguium (principal)
CPT/HCPCS: 36415; 84450; 84460

== ENCOUNTER 2025-07-07 08:39 | Outpatient (CLI) | payer OTHER, SELFPAY ==
--- OUTSIDE RECORDS SUMMARY | 2025-07-07 08:58 | XMS_ITS | Clinical Summary ---
Author Organization [facility] Health Address [address] [place] [place] [address] Care Team Providers Care Drivability Technician Name Role Phone Unavailable Primary Care Provider Unavailabl e Source Comments [facility],non-owned Affiliates and Associated Physician Practices is amultiple site organization consisting of ambulatory clinics and hospital sitesin [place], [place], [place] and [place]. This disclosure is being madepursuant to the Care Everywhere program and may not contain all information available regarding this patient. Last updated 18.[facility] Active Problems Problem Noted Date Diagnosed Date [...] on file Legal Sex Female 6:16 PM CABLEMAN Gender Identity Not on file Sexual Orientation Not on file Last Filed Vital Signs Vital Sign Reading Time Taken Comments Blood Pressure 140/88 11/24/2014 1:56 PM CABLEMAN Pulse 83 11/24/2014 1:56 PM CABLEMAN Temperature 36.9 C (98.5 F) 11/24/2014 1:56 PM CABLEMAN Respiratory Rate 18 11/24/2014 1:56 PM CABLEMAN Oxygen Saturation - - Inhaled Oxygen Concentration - - Weight 66.9 kg (147 lb 8 oz) 11/24/2014 1:56 PM CABLEMAN Height 170.2 cm (5' 7) 11/24/2014 1:56 PM CABLEMAN Body Mass Index 23.1 11/24/2014 1:56 PM CABLEMAN Plan of Treatment Health Maintenance Due Date Last Done Comments HIV SCREENING 2004 HEPATITIS C SCREENING 12/21/2007 DTAP/TDAP/TD VACCINES (1 - Tdap) 2008 HEPATITIS B VACCINE (1 of 3 - 19+ 3-dose series) 2008 HPV VACCINE (1 - 3-dose SCDM series) 2016 COVID-19 VACCINE ( - 2023-2 5 season) 2024 DEPRESSION SCREENING 11/13/2024 INFLUENZA VACCINE (#1) 2025 ZOSTER VACCINE (1 of 2) 2039 [...]
--- OUTSIDE RECORDS SUMMARY | 2025-07-07 08:58 | XMS_ITS | Clinical Summary ---
Author Organization [facility] Address [address] [address] Care Team Providers Care Barber Stylist Name Role Phone Gurpreet Dior MD Primary Care Provider Allergies Active Allergy Reactions Criticality Noted Date Comments Other Itching,Rash Medium SURGICAL GLUE Medications rizatriptan RADIOLOGIC TECHNOLOGY PROGRAM DIRECTOR (MAXALT-RADIOLOGIC TECHNOLOGY PROGRAM DIRECTOR) 10 mg disintegrating tablet as needed 07/16/20 20 Active topiramate (TOPAMAX) 25 mg tablet daily 07/08/20 20 Active cyanocobalamin (Vitamin B-12) 1,000 mcg/mL injection INJECT 1 ML UNDER THE SKIN EVERY OTHER WEEK 11/19/19 22 Active BD SafetyGlide Insulin Syringe 1 mL 29 gauge x 1/2 syringe 09/09/20 21 Active vitamin D3-vitamin K2 1,250-200 mcg capsule Take by mouth daily Active Loryna, 28, 3-0.02 mg per tablet TAKE 1 TABLET BY MOUTH DAILY IN CONTINUOUS MANNER SKIPPING THE PLACEBO PILLS 12/08/19 24 Active plecanatide 3 mg tablet Take 1 tablet (3 mg total) by mouth daily 90 tablet 3 12/29/19 24 Active pyRIDostigmine (MESTINON) 60 mg tablet Take 1 tablet (60 mg total) by mouth 3 (three) times a day 90 tablet 3 12/31/19 25 Active mineral oil liquidIndications: constipation 1 tablespoonful once or twice a day 180 mL 2 12/31/19 25 Active terbinafine (LamiSIL) 250 mg tablet Take 1 tablet (250 mg total) by mouth daily 03/25/20 25 Active cetirizine (ZyrTEC) 10 mg tablet Take 1 tablet (10 mg total) by mouth daily Active dilTIAZem (CARDIZEM) 30 mg tablet Take 1 tablet (30 mg total) by mouth 3 (three) times a day as needed (Take one daily and prn for elevated HR) 270 tablet 04/09/20 25 025 Active Active Problems Problem Noted Date Diagnosed Date S/P colectomy 02/14/2022 Overview (02/14/2022): Added automatically from request for surgery [id number] care following vaginal delivery 06/26 Overview (06/30/2019): [...] home today, will ensure close follow-up in [facility] and with PCP, EP in February [...] Given rx for reglan 5 mg on 3/ Assessment & Plan (02/11/2019 11:47 AM CDT): Reports occasional headaches but overall doing well on current regimen. with history of recent miscarriage 09/2019 Inappropriate sinus tachycardia 07/25/2018 Overview (06/18/2019): --EP milk driver is Dr. Kervin Valles --presented in 12/2016 [...] issues Assessment & Plan (12/24/2018 2:14 PM FITNESS AND WELLNESS DIRECTOR): Denies symptoms, plans to call Dr. Valles [...] well the last two days. Sent to [facility] for r/o preE Assessment & Plan (04/23/2019 3:47 PM CDT): Normotensive today. PEC precautions reviewed. Supervision of high risk , antepartum 1 Overview (06/17/2019): [] Co-management vs. [x] Full [facility] Care Referring Provider: self [x] Dating [...] CBC and 1hr gtt at 24-28wks: 9.4/160 mfs=804 [x] Flu Shot (Sep-Dec) [x] Tdap (27-36wks)given 04/10 3rd Tri Labs: [x] CBC (8.928)/HIV neg /RPR neg/T&S (O+) [x] GBS-negative Counselling [x] MOD: Anticipate IOL scheduled for 06/26 @ 0600 [x] Place of delivery: [facility] [x] MOC: Patient does not desire BTL. May have a in 3 years. Reviewed LARC methods today. Considering Nexplanon [x] Method of feeding: wants to try breast again [] Nutritional Services Director: [] Car seat Discussed [] PP Depression [...] --She had regular bowel studies at the [facility] which most recently reflected poor motility of [...] issues Assessment & Plan (12/24/2018 2:13 PM FITNESS AND WELLNESS DIRECTOR): Denies issues today Abnormal large bowel motility [...] to be 5cm on verbal report from appeals analyst Kalpana ONEIL: closed/long/posterior - WAC precautions reviewed Missed 08/16/2018 11/23/2018 Overview (08/16/2018): Added automatically from request for surgery [id number] Dysuria during , antepartum 07/25/2018 11/22/2018 Dizziness 02/14/2017 11/22/2018 Sensation of chest tightness 01/03/2017 11/22/2018 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 019 Nausea with vomiting 06/04/2015 019 Disorder of muscle, ligament, and fascia 08/06/2013 11/22/2018 Encounters Date Type Department Care Team Description 04/09/2025 9:45 AM CDT Office Visit [facility] Medicine Cardiology [address] [place] [address] Mariza Bustos NP Hypertension, unspecified type (Primary Dx); Inappropriate sinus tachycardia 04/09/2025 Results Follow-Up [facility] Medicine Cardiology [address] [place] [address] Mariza Bustos NP ECG 12 lead from Last 3 Months Immunizations Immunization Administration [...] on file Legal Sex Female 7:40 PM FITNESS AND WELLNESS DIRECTOR Gender Identity Not on file Sexual Orientation [...] Barbara Perdomo MD Complications:Shoulder Dysto pablo Delivery Location:[facility] Main C ampus ([facility]LD) Last Filed Vital Signs Vital Sign Reading Time Taken Comments Blood Pressure 108/86 04/09/2025 9:51 AM CDT Pulse 98 04/09/2025 9:51 AM CDT Temperature 36.8 C (98.2 F) 03/10/2022 7:29 AM CDT Respiratory Rate 16 12/31/2024 11:14 AM FITNESS AND WELLNESS DIRECTOR Oxygen Saturation 98% 04/09/2025 9:51 AM CDT Inhaled Oxygen Concentration - - Weight 66 kg (145 lb 6.4 oz) 04/09/2025 9:51 AM CDT Height 170.2 cm (5' 7) 04/09/2025 9:51 AM CDT Body Mass Index 22.77 04/09/2025 9:51 AM CDT Plan of Treatment Health Maintenance Due Date Last Done Comments Depression Screening 1989 Hepatitis C Screening 1989 Varicella Vaccines (1 of 2 - 13+ 2-dose series) 2002 Hepatitis B Screening 2007 Regular Well Visit/Exam 18-64 2007 HPV Vaccines (1 - 3-dose SCD M series) 2016 Cervical Cancer Screening 08/08/2020 08/08/2019 Influenza Vaccine (#1) 2025 8, 11/16/2017, 08/18/2015 DTaP/Tdap/Td Vaccine (2 - Td or Tdap) 04/10/2029 04/10/2019 Pneumococcal vaccine <65 Aged Out No longer eligible based on patient's age to complete this topic Medical Devices Implanted Type Area Software Client Architect Device Identifier Shelf Expiration Date Model / Serial / Lot Interstem N/A: Bladder Procedures Procedure Name Priority Date/Time Associated Diagnosis Comments ECG 12-LEAD Routine 04/09/2025 9:57 AM CDT Hypertension, unspecified type THINPREP IMAGING PAP REFLEX HPV MRNA E6/E7 Routine 08/08/2019 12:00 AM CDT from Last 3 Months or Most Recently Relevant to Health Maintenance Results * ECG 12 lead (04/09/2025 9:57 AM CDT) Mariza Bustos ELECTROPLATING SALES REPRESENTATIVE ECG ORDERABLES Edited R esult - Final * ThinPrep Imaging Pap Reflex HPV mRNA E6/E7 (08/08/2019 12:00 AM CDT) CLINICAL INFORMATION: Routine exam 6WKS W/HX OF HPV+ 29Y/O FE [facility] LMP INFORMATION NOT PROVIDED [facility] Previous Pap INFORMATION NOT PROVIDED [facility] Prev. Bx INFORMATION NOT PROVIDED [facility] SOURCE: Cervix, Endocervix [facility] Pap, specimen adequacy SATISFACTORY FOR EVALUATION [facility] HPV interp Negative for intraepithelial lesion or malignancy. Atrophic pattern; predominantly parabasal cells [facility] COMMENTS This Pap test has been evaluated with computer assisted technology. [facility] Trench Pipe Layer BEF, CT(ASCP) CT screening location: [place] [address] [place] [address] [facility] [place] Review hyperbaric welder diver GALVEZ, CT(ASCP) CT Screening location: [facility] [place] [address] [facility] Comment [facility] Comment: EXPLANATORY NOTE: The Pap is a [...] Comment Performing Organization Information: Site ID: Name: [facility] Address: [address] [address] Director: Rhiannon Rangel Elizabeth Hernández MD LAB PATHOLOGY ORDERAB LES Final Result [facility] [address] [place] from Last 3 Months or Most Recently Relevant to Health Maintenance Insurance COMMERCIAL GENERIC [facility] IBEW [facility] CIGNA C[facility] CIGNA IBEW CIGNA IBEW CIGNA IBEW Advance Directives For more information, please contact: [phone] * Full Code (Latest Code Status on [...] in case of cardiopulmonary arrest Care Teams Barber Stylist Relationship Specialty Start Date End Date Gurpreet Dior MD [address] [facility] [address] [place] [address] PCP - General 01/10/17
--- OUTSIDE RECORDS SUMMARY | 2025-07-07 08:58 | XMS_ITS | Clinical Summary ---
Author Organization [facility] Address [address] [place] [address] Care Team Providers Care Salon Leader Name Role Phone Gurpreet Dior MD Primary Care Provider [phone] Medications No known medications Social History Tobacco [...] 3 - 19+ 3-dose series) 2008 HPV Vaccines (1 - 3-dose SCD M series) 2016 Cervical Cancer Screening Pa p with HPV Testing (Age 30 to 64) Every 5 Years 2019 Cervical Cancer Screening wi th HPV 2019 COVID-19 Vaccine (4 - 2023-2 5 season) 2024 10/04/2021, 02/16/2021, 01/21/2021 DTaP, Tdap and Td Vaccines ( 2 - Td or Tdap) 04/10/2029 04/10/2019 Meningococcal B Vaccine Aged Out No l [...] to complete this topic Insurance [facility] Care Teams Salon Leader Relationship Specialty Start Date End Date Gurpreet Dior MD [address] [place] [address] PCP - General FAMILY PRACTICE 09/19/24
[2025-07-07 09:33] LABS: Hemoglobin A1C 4.6 % (<5.7)
[2025-07-07 10:00] LABS: Free T4 Free Thyroxine 1.09 ng/dL (0.78-2.19)
[2025-07-07 10:13] LABS: Thyroid Stimulating Hormone 1.410 uIU/mL (0.465-4.680)
[2025-07-08 07:08] LABS: FSH 6.2 mIU/mL (.)
[2025-07-11 21:07] LABS: Estradiol, Sensitive 4.5 pg/mL (.)
== END 2025-07-07 08:40 | disposition home or self-care (01) ==
LOC: ANHLAB 08:40
PROVIDERS: PCP Family Medicine; Visit Provider Obstetrics & Gynecology
DX: N95.1 Menopausal and female climacteric states (principal); R53.83 Other fatigue
CPT/HCPCS: 36415; 82670; 83001; 83036; 84439; 84443

== ENCOUNTER 2025-08-13 10:19 | Outpatient (CLI) | payer OTHER, SELFPAY ==
--- OUTSIDE RECORDS SUMMARY | 2025-02-13 05:30 | XMS_ITS ---
Author Organization [facility] Address [address] [place], [place] [id number] Care Team Providers Care Flight Attendant/Inflight Manager Name Role Phone MARSHA RODRIGUEZ Unavailable [phone] REASON FOR VISIT toenail from toe, painful Encounters Encounter Location Date Provider Diagnosis [facility] [place] [address] [place], [place] [id number] 02/13/2025 MARSHA RODRIGUEZ Plan Of Treatment No Information Progress Notes * Sharon COPEDOB:[birth year] (34 yo F)Acc No.[id number]:02/13/2025 Progress Notes Patient: Sharon DICK Provider: Toña Rodriguez DPM :1990 A ge:34 Y S ex:Female Date:02/13/2025 Address[id number] Subjective: * Chief Complaints: * 1 . Toenail from toe, painful. * Medical History: Objective: * Vitals: Assessment: Plan: * Treatment: * Billing Information: * Visit Code: * Procedure Codes: * Electronic signature of MARSHA RODRIGUEZ DPM on 08/13/2025 at 11:04 AM CDT Sign off status: Pending * Provider: Toña Rodriguez DPM Date: 0 02/13/2025 Generated for Benigno abreu/Marisol/eTdomi on: 11:04 AM CDT
--- OUTSIDE RECORDS SUMMARY | 2025-08-13 11:04 | XMS_ITS | Clinical Summary ---
Author Organization [facility] Address [address] [place] [address] Care Team Providers Care Substance Abuse Prevention Coordinator Name Role Phone Gurpreet Dior MD Primary Care Provider Medications No known medications Social History Tobacco [...] Screening wi th HPV 2019 COVID-19 Vaccine ( - 2024-2 6 season) 2025 10/04/2021, 02/16/2021, 01/21/2021 DTaP, Tdap and Td [...] patient's age to complete this topic Insurance [facility] Care Teams Substance Abuse Prevention Coordinator Relationship Specialty Start Date End Date Gurpreet Dior MD [address] [place] [address] PCP - General FAMILY PRACTICE 09/19/24
--- OUTSIDE RECORDS SUMMARY | 2025-08-13 11:04 | XMS_ITS | Clinical Summary ---
Author Organization [facility] Address [address] [address] Care Team Providers Care Engineering Design Supervisor Name Role Phone Gurpreet Dior MD Primary Care Provider Allergies Active Allergy Reactions Criticality Noted Date Comments Other Itching,Rash Medium SURGICAL GLUE Medications rizatriptan TANK TESTER (MAXALT-TANK TESTER) 10 mg disintegrating tablet as needed 07/16/20 [...] for elevated HR) 270 tablet 04/09/20 25 Active Active Problems Problem Noted Date Diagnosed Date S/P colectomy 02/14/2022 Overview (02/14/2022): Added automatically from request for surgery [id number] care following vaginal delivery 06/26 Overview (06/30/2019): [...] home today, will ensure close follow-up in [facility] and with PCP, EP in [...] Inappropriate sinus tachycardia 07/25/2018 Overview (06/18/2019): --EP customer advisor specialist is Dr. Kervin Valles --presented in 12/2016 [...] issues Assessment & Plan (12/24/2018 2:14 PM PORT TRAFFIC MANAGER): Denies symptoms, plans to call Dr. Valles [...] well the last two days. Sent to [facility] for r/o preE Assessment & Plan (04/23/2019 3:47 PM CDT): Normotensive today. PEC precautions reviewed. Supervision of high risk , antepartum 1 Overview (06/17/2019): [] Co-management vs. [x] Full [facility] Care Referring Provider: self [x] [...] CBC and 1hr gtt at 24-28wks: 9.4/160 wld=[id number] [x] Flu Shot (Sep-Dec) [x] Tdap (27-36wks)given [...] feeding: wants to try breast again [] Leadership Recruiter: [] Car seat Discussed [] PP Depression [...] --She had regular bowel studies at the [facility] which most recently reflected poor [...] issues Assessment & Plan (12/24/2018 2:13 PM PORT TRAFFIC MANAGER): Denies issues today Abnormal large bowel motility [...] to be 5cm on verbal report from tubing mill operator Kalpana ONEIL: closed/long/posterior - WAC precautions reviewed Missed 08/16/2018 11/23/2018 Overview (08/16/2018): Added automatically from request for surgery [id number] Dysuria during , antepartum 07/25/2018 11/22/2018 Dizziness 02/14/2017 11/22/2018 Sensation of chest tightness 01/03/2017 11/22/2018 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 2016 Interstim replaced. CYST REMOVAL 11/13/2015 - 11/12/2016 Left wrist DILATION AND CURETTAGE OF UTERUS 11/13/2017 - 11/12/2018 miscarriage COLECTOMY 11/13/2009 - 11/12/2010 COMBINED HYSTEROSCOPY DIAGNOSTIC / D&C 11/13/2015 - 11/12/2016 Medical History Medical History Date Comments Tachycardia Chronic constipation Neurogenic bladder Dysuria HPV (human papilloma virus) infection 2010 Miscarriage 2017 Family History Medical History Relation Name Comments [...] on file Legal Sex Female 7:40 PM PORT TRAFFIC MANAGER Gender Identity Not on file Sexual Orientation Not on file Obstetrics History Para Term AB IAB SAB Ectopic Multiple Livin g Live Births 3 2 2 1 1 0 2 2 Date Outcome GA Total Labor Labor//3rd Weight Sex Type Anes PTL Lizbet A1 A5 Name Clin 2015 Term 39w 0d 3.402 kg (7 lb 8 oz) F Vag-S pont Epidur al N Livin g 2017 SAB 9w0 d D&C 2018 Term 39w 1d 19h 01m 17h 10m/1h 41m/0h 10m 4.23 kg (9 lb 5.2 oz) F Vag-S pont Epidur al N Livin g 7 9 WILLI AMS,G IRLTR LULU goncalves, Barbara Perdomo MD Complications:Shoulder Dysto pablo Delivery Location:[facility] Main C ampus ([facility] 58LD) Last Filed Vital Signs Vital Sign Reading Time Taken Comments Blood Pressure 108/86 04/09/2025 9:51 AM CDT Pulse 98 04/09/2025 9:51 AM CDT Temperature 36.8 C (98.2 F) 03/10/2022 7:29 AM CDT Respiratory Rate 16 12/31/2024 11:14 AM PORT TRAFFIC MANAGER Oxygen Saturation 98% 04/09/2025 9:51 AM CDT [...] this topic Medical Devices Implanted Type Area Retail Beauty Specialist Device Identifier Shelf Expiration Date Model / [...] exam 6WKS W/HX OF HPV+ 29Y/O FE [facility] - LMP INFORMATION NOT PROVIDED [facility] - Previous Pap INFORMATION NOT PROVIDED [facility] - Prev. Bx INFORMATION NOT PROVIDED [facility] - SOURCE: Cervix, Endocervix [facility] - Pap, specimen adequacy SATISFACTORY FOR EVALUATION [facility] - HPV interp Negative for intraepithelial lesion or malignancy. Atrophic pattern; predominantly parabasal cells [facility] - COMMENTS This Pap test has been evaluated with computer assisted technology. [facility] - Bank Appraiser BEF, CT(ASCP) CT screening location: [place] [address] [place] [id number] [place] [address] DIAGNOSTIC - Review community health navigator GALVEZ, CT(ASCP) CT Screening location: [facility] [address] [address] [facility] - Comment [facility] - Comment: EXPLANATORY [...] Comment Performing Organization Information: Site ID: Name: [facility] Address: [facility] [address] [address] Director: Rhiannon Rangel Elizabeth Hernández MD LAB PATHOLOGY ORDERAB LES Final Result [facility] - [address] [place] from Last 3 Months or Most Recently Relevant to Health Maintenance Insurance COMMERCIAL GENERIC CIGNA IBEW [facility] CIGNA CIGNA OPEN ACCESS CIGNA IBEW [facility] CIGNA IBEW CIGNA IBEW CIGNA IBEW Advance Directives For more information, please contact: [phone] * Full Code (Latest Code Status on [...] in case of cardiopulmonary arrest Care Teams Engineering Design Supervisor Relationship Specialty Start Date End Date Gurpreet Dior MD [address] [facility] [address] [place] [address] PCP - General 01/10/17
--- OUTSIDE RECORDS SUMMARY | 2025-08-13 11:04 | XMS_ITS | Patient Health Record ---
Author Organization [facility] Address [address] [place], [place] [address] Care Team Providers Care Assistant Librarian Name Role Phone RILEYANUSHAROLF MARSHA Unavailable [phone] Reason For Referral No Information Plan Of Treatment No Information
[2025-08-13 11:17] LABS: Alanine Aminotransferase 10 U/L (6-35); Aspartate Amino Transferase 26 U/L (14-36)
== END 2025-08-13 10:20 | disposition home or self-care (01) ==
LOC: ANHLAB 10:20
PROVIDERS: PCP Family Medicine; Visit Provider Podiatrist Foot & Ankle Surgery
DX: B35.1 Tinea unguium (principal)
CPT/HCPCS: 36415; 84450; 84460